=== PATIENT | male | born 1990 | race Caucasian/White ===

== ENCOUNTER 2017-09-14 01:04 | Emergency (ER) | payer OTHER ==
--- NOTE | 2017-09-14 01:15 | EDM.PDOCBH ---
ED HPI GENERAL MEDICAL PROBLEM - General Chief Complaint: Drug or Alcohol Abuse Stated Complaint: MEDICAL CLEARANCE Time Seen by Provider: 09/14/17 01:05 Source of Information: Reports: Patient, RN Notes Reviewed - History of Present Illness INITIAL COMMENTS - FREE TEXT/NARRATIVE: 26-year-old male is been brought in by [facility] medical clearance. He is been drinking vodka. He was getting disruptive at a residence and therefore [facility] ED was called out the scene. He is bringing him into the [facility] for detox. The patient was ambulatory into the ED. He denies recent fall injury to the head or neck. He denies chest pain or difficulty breathing. He denies any other acute discomfort. - Related Data Allergies Allergy/AdvReac Type Severity Reaction Status Date / Time Penicillins Allergy Cannot Verified 09/14/17 01:14 Remember Home Meds: Home Meds Gabapentin [Neurontin] 1,200 mg PO TID 09/14/17 [History] ED ROS GENERAL - Review of Systems Review Of Systems: See Below Constitutional: Reports: No Symptoms HEENT: Reports: No Symptoms Respiratory: Denies: Shortness of Breath Cardiovascular: Denies: Chest Pain GI/Abdominal: Denies: Abdominal Pain Musculoskeletal: Denies: Neck Pain, Back Pain, Joint Pain Neurological: Denies: Trouble Speaking, Difficulty Walking, Weakness ED EXAM, BEHAVIORAL HEALTH - Physical Exam Exam: See Below General Appearance: Alert, Other (Very intoxicated, loud inappropriate speech, cooperative for exam, answering simple questions appropriately.) Eye Exam: Bilateral Eye: PERRL Throat/Mouth: Normal Inspection Head: Atraumatic. No: Facial Swelling Neck: Supple Respiratory/Chest: No Respiratory Distress, Lungs Clear, Normal Breath Sounds Cardiovascular: Regular Rate, Rhythm Extremities: Other (No apparent injury, patient ambulatory without difficulty) Neurological: Alert, Other (At least moderately intoxicated) Skin Exam: Warm, Dry, Normal color COURSE, BEHAVIORAL HEALTH COMP - Course Vital Signs: Last Vital Signs Temp 96.8 F 09/14/17 01:11 Pulse 96 09/14/17 01:11 Resp 16 09/14/17 01:11 BP 135/87 09/14/17 01:11 Pulse Ox 94 L 09/14/17 01:11 Departure - Departure Time of Disposition: 01:19 Disposition: DC/Tfer to Other 70 Condition: Fair Clinical Impression: Alcohol intoxication Qualifiers: Complication of substance-induced condition: uncomplicated Qualified Code(s): F10.920 - Alcohol use, unspecified with intoxication, uncomplicated - Discharge Information Additional Instructions: A screening medical exam has been done. Patient is quite intoxicated. No other acute emergency medical condition is apparent at this time.
== END 2017-09-14 01:26 | disposition other institution (70) ==
LOC: JD.ED 01:04
DX: F10.120 Alcohol abuse with intoxication, uncomplicated (principal); Y90.9 Presence of alcohol in blood, level not specified; Z88.0 Allergy status to penicillin; Z79.899 Other long term (current) drug therapy
CPT/HCPCS: 99283